=== PATIENT | female | born 1950 | race Caucasian/White ===

== ENCOUNTER 2016-09-23 16:38 | Observation (INO) | payer MEDICARE ==
[~2016-09-23] VITALS: Ht 162.6 cm; Wt 95.0 kg
[2016-09-23 16:46] VITALS: BP 124/58; PULSE 84; RESP 19; TEMP 98.3; O2SAT 97
[2016-09-23] MEDS ORDERED: SODIUM CHLOR 0.9% 1000 ML INJ 1,000 ML IV ONE (16:51)
[2016-09-23] MEDS ORDERED: CEFD300C PO (16:55)
[2016-09-23] MEDS ORDERED: PRED10 PO (16:55)
[2016-09-23] MEDS ORDERED: METF1000 PO (16:55)
[2016-09-23] MEDS ORDERED: METO25TA3 PO (16:58)
[2016-09-23] MEDS ORDERED: XARE20TA PO (16:58)
[2016-09-23] MEDS ORDERED: ATOR10TA15 PO (16:58)
[2016-09-23] MEDS ORDERED: ZOLO25TA PO (16:58)
[2016-09-23] MEDS ORDERED: SODIUM CHLORIDE 0.9% FLUSH 5 ML FLUSH IVF PRN (17:00)
--- NOTE | 2016-09-23 17:00 | PD ---
HPI Chief Complaint: Syncope/Near-Syncope Time Seen by Provider: 16:55 Travel History International Travel<30 days: No Contact w/Intl Traveler<30days: No Traveled to known affect area: No History of Present Illness HPI Patient is a 66-year-old female presenting to emergency department via EMS for evaluation of syncopal episodes. Patient states she has fainted twice over the last 2 days. She states that she hit her head both times. She complains of left hip pain, lower back pain, head pain. Patient reports being unable to tolerate food or fluids for the last week, she states she's been vomiting up nearly everything that she's eaten or had to drink. She denies any abdominal pain, she's had several bowel movements over the course of the last week. She further denies any fevers, chills, shortness of breath, chest pain, dizziness prior to the fall. She states that everything just went white and then she blacked out. Patient is here on vacation with a friend. PFSH Past Medical History Hx Anticoagulant Therapy: Yes (xarelto) Blood Disorders: Yes (history of DVT) Diabetes: Yes Respiratory: Yes ?: Not Family History Family History: Negative Social History Alcohol Use: No Tobacco Use: No Substance Use: No Allergies-Medications (Allergen,Severity, Reaction): Coded Allergies: No Known Allergies (Unverified , 09/23/16) Reported Meds & Prescriptions Reported Meds & Active Scripts Active Reported Atorvastatin (Atorvastatin Calcium) Unknown Strength Tab Unknown Dose PO HS Zoloft (Sertraline HCl) 25 Mg Tab 25 Mg PO DAILY Xarelto (Rivaroxaban) 20 Mg Tab 20 Mg PO DAILY Metoprolol Tartrate Unknown Strength Tab Unknown Dose PO BID Prednisone 10 Mg Tab 10 Mg PO DIRECTED Cefdinir 300 Mg Cap 300 Mg PO BID Metformin (Metformin HCl) 1,000 Mg Tab 1,000 Mg PO BIDPC With meals Review of Systems Except as stated in HPI: all other systems reviewed are Neg General / Constitutional: No: Fever, Chills Eyes: No: Blurred Vision HENT: Positive: Headaches, Neck Stiffness, Neck Pain Cardiovascular: No: Chest Pain or Discomfort Respiratory: No: Shortness of Breath Gastrointestinal: Positive: Nausea, Vomiting, No: Diarrhea, Abdominal Pain Musculoskeletal: Positive: Myalgias, Arthralgias, Pain Neurologic: Positive: Weakness, Dizziness, Syncope, Headache, No: Focal Abnormalities, Change in Mentation, Sensory Disturbance Physical Exam Narrative GENERAL: Overweight, well-developed, alert female. Tearful, in no acute distress. SKIN: Warm and dry. HEAD: Atraumatic. Normocephalic. EYES: Pupils equal and round. No scleral icterus. No injection or drainage. ENT: No nasal bleeding or discharge. Mucous membranes pink and moist. NECK: Trachea midline. No JVD. CARDIOVASCULAR: Regular rate and rhythm. No murmur appreciated. No peripheral edema, diminished pedal pulses. RESPIRATORY: No accessory muscle use. Clear to auscultation. Breath sounds equal bilaterally. GASTROINTESTINAL: Abdomen soft, non-tender, nondistended. Hepatic and splenic margins not palpable. MUSCULOSKELETAL: No obvious deformities. No clubbing. No cyanosis. No edema. Left leg is turned out, this is chronic. NEUROLOGICAL: Awake and alert. No obvious cranial nerve deficits. 4/5 muscle strength on the right, 5/5 in the left upper extremities. Normal speech. PSYCHIATRIC: Appropriate mood and affect; insight and judgment normal. Data Data Last Documented VS Vital Signs Date Time Temp Pulse Resp B/P Pulse Ox O2 Delivery O2 Flow Rate FiO2 09/23/16 18:40 96 Nasal Cannula 2 09/23/16 17:30 73 17 120/70 09/23/16 16:46 98.3 Orders Electrocardiogram (09/23/16 16:51) Complete Blood Count With Diff (09/23/16 16:51) Comprehensive Metabolic Panel (09/23/16 16:51) Magnesium (Mg) (09/23/16 16:51) Ckmb (Isoenzyme) Profile (09/23/16 16:51) Troponin I (09/23/16 16:51) Act Partial Throm Time (Ptt) (09/23/16 16:51) Prothrombin Time / Inr (Pt) (09/23/16 16:51) Urinalysis - C+S If Indicated (09/23/16 16:51) Ct Brain W/O Iv Contrast(Rout) (09/23/16 16:51) Ct Cerv Spine W/O Contrast (09/23/16 16:51) Blood Glucose (09/23/16 16:51) Ecg Monitoring (09/23/16 16:51) Iv Access Insert/Monitor (09/23/16 16:51) Oximetry (09/23/16 16:51) Oxygen Administration (09/23/16 16:51) Sodium Chloride 0.9% Flush (Ns Flush) (09/23/16 17:00) Sodium Chlor 0.9% 1000 Ml Inj (Ns 1000 M (09/23/16 16:51) Spine, Lumbar - Ltd (Ap & Lat) (09/23/16 ) Chest, Pa & Lat (09/23/16 ) Hip, Uni(Ap&Lat) W Ap Pelvis (09/23/16 ) Lactic Acid (09/23/16 16:51) Hydromorphone Pf Inj (Dilaudid Pf Inj) (09/23/16 18:15) Ondansetron Inj (Zofran Inj) (09/23/16 18:15) Potassium Chloride (Kcl) (09/23/16 18:30) Magnesium Oxide (Mag-Ox) (09/23/16 18:30) Magnesium Sulfate 1 Gm Premix (Magnesium (09/23/16 18:45) Ketorolac Inj (Toradol Inj) (09/23/16 19:00) Admit Order (Ed Use Only) (09/23/16 20:43) Labs Laboratory Tests Test 09/23/16 09/23/16 17:15 17:20 White Blood Count 13.0 TH/MM3 Red Blood Count 4.87 MIL/MM3 Hemoglobin 12.9 GM/DL Hematocrit 40.8 % Mean Corpuscular Volume 83.7 FL Mean Corpuscular Hemoglobin 26.5 PG Mean Corpuscular Hemoglobin 31.6 % Concent Red Cell Distribution Width 18.9 % Platelet Count 328 TH/MM3 Mean Platelet Volume 8.0 FL Neutrophils (%) (Auto) 75.5 % Lymphocytes (%) (Auto) 16.8 % Monocytes (%) (Auto) 6.7 % Eosinophils (%) (Auto) 0.9 % Basophils (%) (Auto) 0.1 % Neutrophils # (Auto) 9.8 TH/MM3 Lymphocytes # (Auto) 2.2 TH/MM3 Monocytes # (Auto) 0.9 TH/MM3 Eosinophils # (Auto) 0.1 TH/MM3 Basophils # (Auto) 0.0 TH/MM3 CBC Comment DIFF FINAL Differential Comment Prothrombin Time 11.8 SEC Prothromb Time International 1.1 RATIO Ratio Activated Partial 24.7 SEC Thromboplast Time Sodium Level 135 MEQ/L Potassium Level 3.3 MEQ/L Chloride Level 93 MEQ/L Carbon Dioxide Level 30.1 MEQ/L Anion Gap 12 MEQ/L Blood Urea Nitrogen 21 MG/DL Creatinine 0.94 MG/DL Estimat Glomerular Filtration 60 ML/MIN Rate Random Glucose 174 MG/DL Calcium Level 8.2 MG/DL Magnesium Level 0.9 MG/DL Total Bilirubin 0.7 MG/DL Aspartate Amino Transf 17 U/L (AST/SGOT) Alanine Aminotransferase 16 U/L (ALT/SGPT) Alkaline Phosphatase 69 U/L Total Creatine Kinase 79 U/L Troponin I LESS THAN 0.02 NG/ML Total Protein 6.4 GM/DL Albumin 3.1 GM/DL Lactic Acid Level 1.8 mmol/L [facility] Medical Decision Making Medical Screen Exam Complete: Yes Emergency Medical Condition: Yes Interpretation(s) Laboratory Tests Test 09/23/16 09/23/16 17:15 17:20 White Blood Count 13.0 TH/MM3 Red Blood Count 4.87 MIL/MM3 Hemoglobin 12.9 GM/DL Hematocrit 40.8 % Mean Corpuscular Volume 83.7 FL Mean Corpuscular Hemoglobin 26.5 PG Mean Corpuscular Hemoglobin 31.6 % Concent Red Cell Distribution Width 18.9 % Platelet Count 328 TH/MM3 Mean Platelet Volume 8.0 FL Neutrophils (%) (Auto) 75.5 % Lymphocytes (%) (Auto) 16.8 % Monocytes (%) (Auto) 6.7 % Eosinophils (%) (Auto) 0.9 % Basophils (%) (Auto) 0.1 % Neutrophils # (Auto) 9.8 TH/MM3 Lymphocytes # (Auto) 2.2 TH/MM3 Monocytes # (Auto) 0.9 TH/MM3 Eosinophils # (Auto) 0.1 TH/MM3 Basophils # (Auto) 0.0 TH/MM3 CBC Comment DIFF FINAL Differential Comment Prothrombin Time 11.8 SEC Prothromb Time International 1.1 RATIO Ratio Activated Partial 24.7 SEC Thromboplast Time Sodium Level 135 MEQ/L Potassium Level 3.3 MEQ/L Chloride Level 93 MEQ/L Carbon Dioxide Level 30.1 MEQ/L Anion Gap 12 MEQ/L Blood Urea Nitrogen 21 MG/DL Creatinine 0.94 MG/DL Estimat Glomerular Filtration 60 ML/MIN Rate Random Glucose 174 MG/DL Calcium Level 8.2 MG/DL Magnesium Level 0.9 MG/DL Total Bilirubin 0.7 MG/DL Aspartate Amino Transf 17 U/L (AST/SGOT) Alanine Aminotransferase 16 U/L (ALT/SGPT) Alkaline Phosphatase 69 U/L Total Creatine Kinase 79 U/L Troponin I LESS THAN 0.02 NG/ML Total Protein 6.4 GM/DL Albumin 3.1 GM/DL Lactic Acid Level 1.8 mmol/L Last Impressions Head CT 09/23/16 1651 Signed Impressions: Service Date/Time: Friday, September 23, 2016 17:56 - CONCLUSION: No acute intracranial abnormality. There is maxillary sinus disease. Maurisio Dozier MD Hip and Pelvis X-Ray 09/23/16 0000 Signed Impressions: Service Date/Time: Friday, September 23, 2016 18:14 - CONCLUSION: 1. No acute injury is seen. 2. Chronic calcification superior to the greater trochanter likely related to hypertrophic change. Maurisio Dozier MD Chest X-Ray 09/23/16 0000 Signed Impressions: Service Date/Time: Friday, September 23, 2016 18:24 - CONCLUSION: No acute disease. Maurisio Dozier MD Vital Signs Date Time Temp Pulse Resp B/P Pulse Ox O2 Delivery O2 Flow Rate FiO2 09/23/16 16:46 98.3 84 19 124/58 97 Differential Diagnosis Electrolyte abnormality versus cardiac arrhythmia versus CVA versus viral syndrome versus other Narrative Course Patient presented to the emergency department via EMS for evaluation of syncopal episodes over the last 2 days. Patient is complaining of hip, back, neck pain, head pain. She reports nausea and vomiting over the last week. Patient's vital signs are stable. Labs and imaging ordered and pending. CT of the brain shows no acute abnormality CT of the cervical spine shows no acute abnormality CBC with mildly elevated white count Chemistry with potassium 3.3 and magnesium of 0.9, these were replaced orally and intravenously Coags are unremarkable Patient's vital signs remained stable EKG shows sinus rhythm Chest x-ray shows no acute disease X-ray of the hip is negative for acute injury X-ray of the lumbar spine shows grade 1-2 anterior spondylolisthesis of L5-S1, prominent disc space narrowing at this level is also prominent disc space narrowing and chronic endplate changes at T12 to L1 level. No acute fracture is again applied. Due to patient's repeated syncopal episodes she will be admitted under observation. Discussed patient's presentation and labs and imaging results with Dr. Gonzáles who accepted admission. Diagnosis Primary Impression: Syncope and collapse Additional Impressions: Hypokalemia Hypomagnesemia Nausea & vomiting Qualified Code: R11.2 - Nausea and vomiting, intractability of vomiting not specified, unspecified vomiting type Admitting Information Admitting Physician Requests: Observation Condition: Stable Rosana Cote Sep 23, 2016 17:00
[2016-09-23 17:02] VITALS: O2SAT 95
[2016-09-23 17:30] VITALS: BP 120/70; PULSE 73; RESP 17; O2SAT 97
[2016-09-23 18:00] LABS: APTT (PATIENT) 24.7 SEC (24.3-30.1); INTERNATIONAL NORMALIZED RATIO 1.1 RATIO; PROTHROMBIN TIME - PATIENT 11.8 SEC (9.8-11.6)
[2016-09-23 18:03] LABS: AUTOMATED NEUTROPHIL # 9.8 TH/MM3 (1.8-7.7); BASOPHIL % 0.1 % (0.0-2.0); EOSINOPHIL # 0.1 TH/MM3 (0-0.4); EOSINOPHIL % 0.9 % (0.0-4.0); HEMATOCRIT 40.8 % (35.0-46.0); HEMO FLAGS DIFF FINAL; LYMPH % 16.8 % (9.0-44.0); LYMPHOCYTE # 2.2 TH/MM3 (1.0-4.8); MEAN CELL VOLUME 83.7 FL (80.0-100.0); MEAN CORPUSCULAR HEMOGLOBIN 26.5 PG (27.0-34.0); MEAN CORPUSCULAR HGB CONC 31.6 % (32.0-36.0); MONO % 6.7 % (0.0-8.0); NEUT % 75.5 % (16.0-70.0); PLATELET COUNT 328 TH/MM3 (150-450); RED BLOOD COUNT 4.87 MIL/MM3 (4.00-5.30); RED CELL DISTRIBUTION WIDTH 18.9 % (11.6-17.2)
[2016-09-23] MEDS ORDERED: ONDANSETRON HCL 4 MG/2 ML VIAL IV PUSH ONE (18:15)
[2016-09-23] MEDS ORDERED: HYDROmorphone HCL PF 1 MG/ML VIAL IV PUSH ONE (18:15)
--- NOTE | 2016-09-23 18:16 | RADRPT ---
EXAM DATE/TIME: 09/23/2016 17:56 [facility] COMPARISON: No previous studies available for comparison. INDICATIONS : Syncope with head injury. RADIATION DOSE: 36.16 CTDIvol (mGy) MEDICAL HISTORY : Deep venous thrombosis. Hypercholesterolemia. Arthritis. SURGICAL HISTORY : None. ENCOUNTER: Initial ACUITY: 1 day PAIN SCALE: 4/10 LOCATION: cranial TECHNIQUE: Multiple contiguous axial images were obtained of the head. Using automated exposure control and adj ustment of the mA and/or kV according to patient size, radiation dose was kept as low as reasonably a chievable to obtain optimal diagnostic quality images. FINDINGS: CEREBRUM: The ventricles are normal for age. No evidence of midline shift, mass lesion, hemorrhage or acute in farction. No extra-axial fluid collections are seen. POSTERIOR FOSSA: The cerebellum and brainstem are intact. The 4th ventricle is midline. The cerebellopontine angle i s unremarkable. EXTRACRANIAL: The visualized portion of the orbits is intact. There is bilateral maxillary sinus disease. SKULL: The calvaria is intact. No evidence of skull fracture. CONCLUSION: No acute intracranial abnormality. There is maxillary sinus disease. Maurisio Dozier MD on September 23, 2016 at 18:13 Board Certified Radiologist. This report was verified electronically.
[2016-09-23 18:20] LABS: ANION GAP 12 MEQ/L (5-15); AST (GOT) 17 U/L (15-37); BICARBONATE 30.1 MEQ/L (21.0-32.0); BLOOD UREA NITROGEN 21 MG/DL (7-18); CHLORIDE 93 MEQ/L (98-107); GLOMERULAR FILTRATION RATE 60 ML/MIN (>89); MAGNESIUM 0.9 MG/DL (1.5-2.5); POTASSIUM 3.3 MEQ/L (3.5-5.1); SODIUM (NA) 135 MEQ/L (136-145)
[2016-09-23 18:25] LABS: ALKALINE PHOSPHATASE 69 U/L (45-117); ALT (GPT) 16 U/L (10-53); TOTAL BILIRUBIN ADULT 0.7 MG/DL (0.2-1.0)
[2016-09-23 18:27] LABS: CREATINE KINASE 79 U/L (26-192)
[2016-09-23] MEDS ORDERED: POTASSIUM CHLORIDE 20 MEQ CONTROLLED RELEASE TAB PO ONE (18:30)
[2016-09-23] MEDS ORDERED: MAGNESIUM OXIDE 400 MG TAB PO ONE (18:30)
--- NOTE | 2016-09-23 18:32 | RADRPT ---
EXAM DATE/TIME: 09/23/2016 17:56 [facility] COMPARISON: No previous studies available for comparison. INDICATIONS : Syncope with head trauma. RADIATION DOSE: 21.39 CTDIvol (mGy) MEDICAL HISTORY : Arthritis. Deep venous thrombosis. Hypercholesterolemia. SURGICAL HISTORY : None. ENCOUNTER: Initial ACUITY: 1 day PAIN SCALE: 7/10 LOCATION: Neck TECHNIQUE: Volumetric scanning of the cervical spine was performed. Multiplanar reconstructions i n the sagittal, coronal and oblique axial planes were performed. Using automated exposure control a nd adjustment of the mA and/or kV according to patient size, radiation dose was kept as low as reason ably achievable to obtain optimal diagnostic quality images. FINDINGS: The craniovertebral junction is intact. There is a defect identified at the posterior arch of C1. This is well corticated and is chronic. This is a normal variant. The dens is intact. T he C1-C2 articulation is intact. The cervical vertebral bodies are normal in height. There is some mi nimal anterior subluxation of C7 on T1 in the order of 2 to 3 mm. C2-C3: There is posterior osteophytic ridging causing a mild impression on the anterior aspect of th e thecal sac. The neural foramina are normal. There is bilateral facet hypertrophy being worse on th e left. C3-C4: The posterior disc margin is grossly intact. No spinal stenosis is seen. There is mild face t hypertrophy. C4-C5: There is a mild central disc protrusion. This causes at least a mild impression on the anter ior aspect of the thecal sac. The neural foramina are normal. C5-C6: Disc space is narrowed. There is mild diffuse disc bulge and osteophytic ridging causing a mi ld to moderate impression on the anterior aspect of the thecal sac. There is uncovertebral hypertrop hy. The neural foramina are grossly normal. There is mild facet hypertrophy. C6-C7: Disc demonstrates significant loss of height. There is prominent sclerosis seen at the inferi or C6 and superior C7 regions. There is posterior osteophytic ridging. There does appear to be a foc al central to left paracentral disc protrusion causing a mild impression on the anterior aspect of th e thecal sac. There is uncovertebral hypertrophy. There is mild narrowing of the left neural forami na. The right neural foramina appears grossly intact. C7-T1: Again noted is the anterior subluxation of C7 on T1. Significant narrowing of the thecal sac is not seen. There is moderate facet hypertrophy. The neural foramina are normal. CONCLUSION: 1. Degenerative chronic bony change as described above. 2. Mild central disc protrusion at the C4-C5 level and at the central to left side at the C6-C7 level . 3. Disc space narrowing and bulging and osteophyte formation at the C5-C6 and C6-C7 levels. 4. 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 Maurisio Dozier MD on September 23, 2016 at 18:14 Board Certified Radiologist. This report was verified electronically.
[2016-09-23] MEDS ORDERED: MAGNESIUM SULFATE 1 GM PREMIX 100 ML IV ONE (18:45)
--- NOTE | 2016-09-23 18:57 | RADRPT ---
EXAM DATE/TIME: 09/23/2016 18:14 [facility] COMPARISON: No previous studies available for comparison. INDICATIONS : Left hip pain after passing out and falling. MEDICAL HISTORY : None. SURGICAL HISTORY : None. ENCOUNTER: Initial ACUITY: 1 day PAIN SCORE: 10/10 LOCATION: Left hip. FINDINGS: Examination of the left hip was performed with AP Pelvis. The primary and secondary trabecular patte rn of the femoral neck is intact. The hip joint is of normal width without significant sclerosis or bony hypertrophy. The acetabulum is grossly intact. There is some calcification seen superior to the greater trochanter. CONCLUSION: 1. No acute injury is seen. 2. Chronic calcification superior to the greater trochanter likely related to hypertrophic change. Maurisio Dozier MD on September 23, 2016 at 18:52 Board Certified Radiologist. This report was verified electronically.
[2016-09-23] MEDS ORDERED: KETOROLAC TROMETHAMINE 30 MG/ML (IVP) VIAL IV PUSH ONE (19:00)
--- NOTE | 2016-09-23 19:02 | RADRPT ---
EXAM DATE/TIME: 09/23/2016 18:24 [facility] COMPARISON: No previous studies available for comparison. INDICATIONS : Syncope. MEDICAL HISTORY : None. SURGICAL HISTORY : gastric bypass surgery, cholecystectomy. ENCOUNTER: Initial ACUITY: 1 day PAIN SCORE: 10/10 LOCATION: Bilateral chest FINDINGS: PA and lateral views of the chest demonstrate the lungs to be symmetrically aerated without evidence of mass, infiltrate or effusion. The cardiomediastinal contours are unremarkable. Osseous structure s are intact. There appears to be a lap band in place. CONCLUSION: No acute disease. Maurisio Dozier MD on September 23, 2016 at 19:01 Board Certified Radiologist. This report was verified electronically.
--- NOTE | 2016-09-23 19:03 | RADRPT ---
EXAM DATE/TIME: 09/23/2016 18:17 [facility] COMPARISON: No previous studies available for comparison. INDICATIONS : Lower back pain after passing out and falling. MEDICAL HISTORY : None. SURGICAL HISTORY : None. ENCOUNTER: Initial ACUITY: 1 day PAIN SCORE: 10/10 LOCATION: Bilateral lower back. FINDINGS: There are five non rib-bearing lumbar elements. There does appear to be some silvano mentary lumbarization of S1 with a rudimentary disc at the S1-S2 level. There is Grade I to II anter ior spondylolisthesis of L5 on S1. There appear to be pars defects present. The lumbar vertebral sharon dies are otherwise normally aligned. There is prominent disc space narrowing and endplate sclerosis and osteophyte formation at the T12-L1 level. There is disc space narrowing at the L5-S1 level. The remanning disc spaces are grossly intact. There is a lap band in place. Vascular calcifications are seen. The sacroiliac joints are intact. CONCLUSION: 1. Grade I to II anterior spondylolisthesis of L5 on S1. 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 There is very prominent disc space narrowing at this level. 2. Prominent disc space narrowing and chronic endplate changes at the T12-L1 level. Maurisio Dozier MD on September 23, 2016 at 18:56 Board Certified Radiologist. This report was verified electronically.
--- NOTE | 2016-09-23 19:12 | PD ---
Physical Exam Date Seen by Provider: Sep 23, 2016 Time Seen by Provider: 18:00 Narrative I, Dr. Lott, have reviewed the advance practice practitioner's documentation and am in agreement, met with the patient face to face, made the diagnosis, and the medical decision making was done by me. *My assessment and Findings: Patient seen and evaluated with nurse practitioner Rosana, please see practitioner note for further details. Patient is here because she has been feeling poorly in the past few days, nausea, vomiting, having 2 syncopal episodes. Patient is awake, alert, oriented 3. Moving all 4 extremities. Cardiac exam is unremarkable. Pulmonary exam is unremarkable. Abdomen is soft and nontender, benign. EKG shows sinus rhythm at a rate of 86 bpm with no signs of acute ST-T changes. Laboratory Tests Test 09/23/16 17:15 White Blood Count 13.0 TH/MM3 (4.0-11.0) Mean Corpuscular Hemoglobin 26.5 PG (27.0-34.0) Mean Corpuscular Hemoglobin 31.6 % Concent (32.0-36.0) Red Cell Distribution Width 18.9 % (11.6-17.2) Neutrophils (%) (Auto) 75.5 % (16.0-70.0) Neutrophils # (Auto) 9.8 TH/MM3 (1.8-7.7) Prothrombin Time 11.8 SEC (9.8-11.6) Sodium Level 135 MEQ/L (136-145) Potassium Level 3.3 MEQ/L (3.5-5.1) Chloride Level 93 MEQ/L (98-107) Blood Urea Nitrogen 21 MG/DL (7-18) Estimat Glomerular Filtration 60 ML/MIN (>89) Rate Random Glucose 174 MG/DL (74-106) Calcium Level 8.2 MG/DL (8.5-10.1) Magnesium Level 0.9 MG/DL (1.5-2.5) Troponin I LESS THAN 0.02 NG/ML (0.02-0.05) Albumin 3.1 GM/DL (3.4-5.0) Last [address] 09/23/16 1651 Signed Impressions: Service Date/Time: Friday, September 23, 2016 17:56 - CONCLUSION: No acute intracranial abnormality. There is maxillary sinus disease. Maurisio Dozier MD Hip and Pelvis X-Ray 09/23/16 0000 Signed Impressions: Service Date/Time: Friday, September 23, 2016 18:14 - CONCLUSION: 1. No acute injury is seen. 2. Chronic calcification superior to the greater trochanter likely related to hypertrophic change. Maurisio Dozier MD CAT scan did not show any signs of acute intracranial processes. X-rays did not show significant injuries. Lab work and EKG did not show significant dysrhythmia or metabolic issues. Patient was given IV fluids and symptomatic relief or pain and nausea. At this point, my plan would be to admit the patient for further evaluation of syncope. Data Data Last Documented VS Vital Signs Date Time Temp Pulse Resp B/P Pulse Ox O2 Delivery O2 Flow Rate FiO2 09/23/16 18:40 96 Nasal Cannula 2 09/23/16 17:30 73 17 120/70 09/23/16 16:46 98.3 Orders Electrocardiogram (09/23/16 16:51) Complete Blood Count With Diff (09/23/16 16:51) Comprehensive Metabolic Panel (09/23/16 16:51) Magnesium (Mg) (09/23/16 16:51) Ckmb (Isoenzyme) Profile (09/23/16 16:51) Troponin I (09/23/16 16:51) Act Partial Throm Time (Ptt) (09/23/16 16:51) Prothrombin Time / Inr (Pt) (09/23/16 16:51) Urinalysis - C+S If Indicated (09/23/16 16:51) Ct Brain W/O Iv Contrast(Rout) (09/23/16 16:51) Ct Cerv Spine W/O Contrast (09/23/16 16:51) Blood Glucose (09/23/16 16:51) Ecg Monitoring (09/23/16 16:51) Iv Access Insert/Monitor (09/23/16 16:51) Oximetry (09/23/16 16:51) Oxygen Administration (09/23/16 16:51) Sodium Chloride 0.9% Flush (Ns Flush) (09/23/16 17:00) Sodium Chlor 0.9% 1000 Ml Inj (Ns 1000 M (09/23/16 16:51) Spine, Lumbar - Ltd (Ap & Lat) (09/23/16 ) Chest, Pa & Lat (09/23/16 ) Hip, Uni(Ap&Lat) W Ap Pelvis (09/23/16 ) Lactic Acid (09/23/16 16:51) Hydromorphone Pf Inj (Dilaudid Pf Inj) (09/23/16 18:15) Ondansetron Inj (Zofran Inj) (09/23/16 18:15) Potassium Chloride (Kcl) (09/23/16 18:30) Magnesium Oxide (Mag-Ox) (09/23/16 18:30) Magnesium Sulfate 1 Gm Premix (Magnesium (09/23/16 18:45) Ketorolac Inj (Toradol Inj) (09/23/16 19:00) Labs Laboratory Tests Test 09/23/16 09/23/16 17:15 17:20 White Blood Count 13.0 TH/MM3 Red Blood Count 4.87 MIL/MM3 Hemoglobin 12.9 GM/DL Hematocrit 40.8 % Mean Corpuscular Volume 83.7 FL Mean Corpuscular Hemoglobin 26.5 PG Mean Corpuscular Hemoglobin 31.6 % Concent Red Cell Distribution Width 18.9 % Platelet Count 328 TH/MM3 Mean Platelet Volume 8.0 FL Neutrophils (%) (Auto) 75.5 % Lymphocytes (%) (Auto) 16.8 % Monocytes (%) (Auto) 6.7 % Eosinophils (%) (Auto) 0.9 % Basophils (%) (Auto) 0.1 % Neutrophils # (Auto) 9.8 TH/MM3 Lymphocytes # (Auto) 2.2 TH/MM3 Monocytes # (Auto) 0.9 TH/MM3 Eosinophils # (Auto) 0.1 TH/MM3 Basophils # (Auto) 0.0 TH/MM3 CBC Comment DIFF FINAL Differential Comment Prothrombin Time 11.8 SEC Prothromb Time International 1.1 RATIO Ratio Activated Partial 24.7 SEC Thromboplast Time Sodium Level 135 MEQ/L Potassium Level 3.3 MEQ/L Chloride Level 93 MEQ/L Carbon Dioxide Level 30.1 MEQ/L Anion Gap 12 MEQ/L Blood Urea Nitrogen 21 MG/DL Creatinine 0.94 MG/DL Estimat Glomerular Filtration 60 ML/MIN Rate Random Glucose 174 MG/DL Calcium Level 8.2 MG/DL Magnesium Level 0.9 MG/DL Total Bilirubin 0.7 MG/DL Aspartate Amino Transf 17 U/L (AST/SGOT) Alanine Aminotransferase 16 U/L (ALT/SGPT) Alkaline Phosphatase 69 U/L Total Creatine Kinase 79 U/L Troponin I LESS THAN 0.02 NG/ML Total Protein 6.4 GM/DL Albumin 3.1 GM/DL Lactic Acid Level 1.8 mmol/L [facility] Medical Record Reviewed: Yes Supervised Visit with BERE: Yes Diagnosis Primary Impression: SYNCOPE AND COLLAPSE Admitting Information Admitting Physician Requests: Admit Simon Lott MD Sep 23, 2016 19:12
[2016-09-23 20:58] LABS: BLOOD, URINE NEG (NEG); COMMENT (UR) CULT NOT INDICATED; CULTURE IF INDICATED CULT NOT INDICATED; GLUCOSE,URINE NEG (NEG); HYALINE CAST, URINE 1 /lpf (RARE); KETONE, URINE NEG (NEG); NITRITE,URINE NEG (NEG); PH, URINE 6.5 (5.0-8.5); URINE COLOR YELLOW (YELLW/STRAW)
[2016-09-23] MEDS ORDERED: SODIUM CHLORIDE 0.9% FLUSH 5 ML FLUSH FLUSH PRN (21:15)
[2016-09-23] MEDS ORDERED: ACETAMINOPHEN/HYDROcodone 325 MG/5 MG TAB PO PRN (21:15)
[2016-09-23] MEDS ORDERED: BISACODYL 10 MG SUPP PR PRN (21:15)
[2016-09-23] MEDS ORDERED: ACETAMINOPHEN 325 MG TAB PO PRN (21:15)
[2016-09-23] MEDS ORDERED: DEXTROSE 50% IN WATER 50 ML VIAL(D50) IV PUSH PRN (21:15)
[2016-09-23] MEDS ORDERED: GLUCAGON 1 MG/ML VIAL OTHER PRN ×2 (21:15)
--- NOTE | 2016-09-23 21:17 | HHI.HP ---
[facility] Service [facility] Primary Care Physician Non-Staff Admission Diagnosis SYNCOPE Diagnoses: (1) Syncope Diagnosis: Principal (2) Dehydration Diagnosis: Principal (3) Hypokalemia Diagnosis: Principal (4) Hypomagnesemia Diagnosis: Principal (5) DM (diabetes mellitus) Diagnosis: Principal Travel History International Travel<30 Days: No Contact w/Intl Traveler <30 Da: No Traveled to Known Affected Are: No History of Present Illness This is a 66-year-old female with a PMH of HTN, DVT on Xarelto, DM and Hyperlipidemia who was brought to the ER by EMS after syncopal episode. Per pt this is second syncopal episode since yesterday. Denies lightheadedness or dizziness prior to syncope. + head trauma. No convulsions witnessed. Pt does relay recent nausea, vomiting and decreased PO intake for 3-4 days. Denies fever, chills, SOB or chest pain. On arrival, BP 120/58, HR 84, O2 sat 97% RA, Afebrile. K+ 3.3, BUN 21, GFR 60, Mg 0.9, Lactic Acid 1.8. Trop negative. S/ p K+ and Mg replacement in ER. INR 1.1. UA negative. CT Head with no acute findings. CT C-spine with mild central disc protrusion C4-C5, disc space narrowing and bulging at C5-C6 and C6-C7 and degenerative chronic bony changes. Hip/Pelvis X-ray with no acute injury. CXR with no acute findings. Review of Systems Except as stated in HPI: all other systems reviewed are Neg ROS: 14 point review of systems otherwise negative. Past Family Social History Past Medical History PMH: HTN, DVT on Xarelto, DM and Hyperlipidemia Past Surgical History PAST SURGICAL HISTORY: Cholecystectomy Allergies: Coded Allergies: No Known Allergies (Unverified , 09/23/16) Family History PAST FAMILY HISTORY: Reviewed, positive for DM. Social History PAST SOCIAL HISTORY: Negative for alcohol, tobacco or drugs. Physical Exam Vital Signs Vital Signs Date Time Temp Pulse Resp B/P Pulse Ox O2 Delivery O2 Flow Rate FiO2 09/23/16 18:40 96 Nasal Cannula 2 2/15/17 17:30 73 17 120/70 97 Nasal Cannula 2 09/23/16 17:03 95 Room Air 09/23/16 17:02 95 Room Air 09/23/16 16:46 98.3 84 19 124/58 97 Physical Exam PE: GENERAL: Middle-aged female in no acute distress. HEENT: PERRLA, EOMI. No scleral icterus or conjunctival pallor. No lid lag or facial droop. CARDIOVASCULAR: Regular rate and rhythm. No obvious murmurs to auscultation. No chest tenderness to palpation. RESPIRATORY: No obvious rhonchi or wheezing. Clear to auscultation. Breath sounds equal bilaterally. GASTROINTESTINAL: Abdomen soft, non-tender, nondistended. BS normal. MUSCULOSKELETAL: Extremities without clubbing, cyanosis, or edema. Pulses intact NEUROLOGICAL: Awake, alert and oriented x4. No focal neurologic deficits. Moving both upper and lower extremities spontaneously. Laboratory Laboratory Tests Test 09/23/16 09/23/16 09/23/16 17:15 17:20 20:30 White Blood Count 13.0 Red Blood Count 4.87 Hemoglobin 12.9 Hematocrit 40.8 Mean Corpuscular Volume 83.7 Mean Corpuscular Hemoglobin 26.5 Mean Corpuscular Hemoglobin 31.6 Concent Red Cell Distribution Width 18.9 Platelet Count 328 Mean Platelet Volume 8.0 Neutrophils (%) (Auto) 75.5 Lymphocytes (%) (Auto) 16.8 Monocytes (%) (Auto) 6.7 Eosinophils (%) (Auto) 0.9 Basophils (%) (Auto) 0.1 Neutrophils # (Auto) 9.8 Lymphocytes # (Auto) 2.2 Monocytes # (Auto) 0.9 Eosinophils # (Auto) 0.1 Basophils # (Auto) 0.0 CBC Comment DIFF FINAL Differential Comment Prothrombin Time 11.8 Prothromb Time International 1.1 Ratio Activated Partial 24.7 Thromboplast Time Sodium Level 135 Potassium Level 3.3 Chloride Level 93 Carbon Dioxide Level 30.1 Anion Gap 12 Blood Urea Nitrogen 21 Creatinine 0.94 Estimat Glomerular Filtration 60 Rate Random Glucose 174 Calcium Level 8.2 Magnesium Level 0.9 Total Bilirubin 0.7 Aspartate Amino Transf 17 (AST/SGOT) Alanine Aminotransferase 16 (ALT/SGPT) Alkaline Phosphatase 69 Total Creatine Kinase 79 Troponin I LESS THAN 0.02 Total Protein 6.4 Albumin 3.1 Lactic Acid Level 1.8 Urine Color YELLOW Urine Turbidity CLEAR Urine pH 6.5 Urine Specific [place] 1.012 Urine Protein NEG Urine Glucose (UA) NEG Urine Ketones NEG Urine Occult Blood NEG Urine Nitrite NEG Urine Bilirubin NEG Urine Urobilinogen LESS THAN 2.0 Urine Leukocyte Esterase NEG Urine WBC 1 Urine Hyaline Casts 1 Microscopic Urinalysis Comment CULT NOT INDICATED Result Diagram: 09/23/16171409/23/161714 Assessment and Plan Problem List: (1) Syncope ICD Code: R55 Status: Acute (2) Dehydration ICD Code: E86.0 Status: Acute (3) Hypokalemia ICD Code: E87.6 Status: Acute (4) Hypomagnesemia ICD Code: E83.42 Status: Acute (5) DM (diabetes mellitus) ICD Code: E11.9 Status: Acute Assessment and Plan A/P: 1. Syncope: s/p syncopal episode today and yesterday, +head trauma, no convulsions witnessed, denies prodromal symptoms. CT Head/CT C-Spine w/ no acute findings, images reviewed by me. Hip/Pelvis X-ray negative for fracture, CXR w/ no acute findings, images reviewed. Admit for Observation, IVF for hydration, telemetry, check Echo, check serial trop to eval for underlying ischemia. 2. Dehydration: reports nausea/vomiting and decreased PO intake, IVF for hydration. GFR 60, BUN 21, no previous labs for comparison. U/a negative. 3. Hypokalemia: S/p K+ replacement in ER, will recheck in am and replace as needed. 4. Hypomagnesemia: Mg 0.9, s/p replacement in ER. Recheck Mg in am, replace as needed. 5. DM: Sliding scale w/ Accu-Cheks, hold Metformin secondary to decreased PO intake. 6. DVT Prophylaxis: SCD/teds. 7. Social work for DC planning as needed. 8. Case discussed at length with ER physician. Amanda Gonzáles MD Sep 23, 2016 21:17
[2016-09-23] MEDS: SODIUM CHLOR 0.9% 1000 ML INJ 1,000 ML IV SCH (23:00)
[2016-09-23] MEDS: ACETAMINOPHEN/HYDROcodone 325 MG/10 MG TAB PO PRN (23:03)
[2016-09-23] MEDS: ONDANSETRON HCL 4 MG/2 ML VIAL IVP PRN (23:03)
[2016-09-23 23:08] VITALS: BP 110/59; PULSE 73; RESP 17; O2SAT 96
[2016-09-24 03:00] VITALS: BP 115/63; PULSE 70; RESP 17; O2SAT 98
[2016-09-24] MEDS: ACETAMINOPHEN/HYDROcodone 325 MG/10 MG TAB PO PRN ×5 (03:27→22:22)
[2016-09-24 04:07] LABS: AUTOMATED NEUTROPHIL # 6.1 TH/MM3 (1.8-7.7); BASOPHIL % 0.3 % (0.0-2.0); EOSINOPHIL # 0.2 TH/MM3 (0-0.4); LYMPH % 21.1 % (9.0-44.0); LYMPHOCYTE # 1.9 TH/MM3 (1.0-4.8); MEAN CELL VOLUME 83.5 FL (80.0-100.0); MEAN CORPUSCULAR HEMOGLOBIN 26.8 PG (27.0-34.0); MEAN CORPUSCULAR HGB CONC 32.1 % (32.0-36.0); MONO % 8.2 % (0.0-8.0); NEUT % 68.4 % (16.0-70.0); PLATELET COUNT 281 TH/MM3 (150-450); RED BLOOD COUNT 4.55 MIL/MM3 (4.00-5.30); RED CELL DISTRIBUTION WIDTH 18.7 % (11.6-17.2); WHITE BLOOD COUNT 8.9 TH/MM3 (4.0-11.0)
[2016-09-24 04:17] LABS: HEMO FLAGS AUTO DIFF
[2016-09-24 04:32] LABS: ANION GAP 5 MEQ/L (5-15); AST (GOT) 46 U/L (15-37); BICARBONATE 30.5 MEQ/L (21.0-32.0); BLOOD UREA NITROGEN 18 MG/DL (7-18); CHLORIDE 101 MEQ/L (98-107); GLOMERULAR FILTRATION RATE 87 ML/MIN (>89); MAGNESIUM 1.6 MG/DL (1.5-2.5); POTASSIUM 5.3 MEQ/L (3.5-5.1); SODIUM (NA) 136 MEQ/L (136-145)
[2016-09-24 04:33] LABS: ALKALINE PHOSPHATASE 55 U/L (45-117); ALT (GPT) 19 U/L (10-53); TOTAL BILIRUBIN ADULT 0.6 MG/DL (0.2-1.0)
[2016-09-24] MEDS: INSULIN ASPART SUPPLEMENTAL SCALE SQ SCH ×4 (07:00→20:59)
[2016-09-24 07:14] VITALS: BP 134/63; PULSE 73; RESP 12; TEMP 97.9; O2SAT 88
[2016-09-24 07:20] VITALS: BP_SYST 131; BP_SYST 134; BP_SYST 137; BP_DIAS 60; BP_DIAS 61; BP_DIAS 63; RESP 13; RESP 16
[2016-09-24] MEDS: SODIUM CHLOR 0.9% 1000 ML INJ 1,000 ML IV SCH (07:30)
[2016-09-24] MEDS: SODIUM CHLORIDE 0.9% FLUSH 5 ML FLUSH FLUSH SCH ×2 (07:30→20:58)
[2016-09-24 07:44] LABS: OVALOCYTES 1+ (NORMAL); PLATELET ESTIMATE SMEAR NORMAL (NORMAL); PLATELET MORPHOLOGY NORMAL (NORMAL); SCAN/DIFF AUTO DIFF CONFIRMED
[2016-09-24] MEDS: ONDANSETRON HCL 4 MG/2 ML VIAL IVP PRN ×3 (08:08→22:22)
--- NOTE | 2016-09-24 08:47 | EKG ---
Date Performed: 09/23/2016 Time Performed: 17:02:27 PTAGE: 66 years EKG: Sinus rhythm BORDERLINE LEFT AXIS DEVIATION BORDERLINE ECG NO PREVIOUS TRACING DOCTOR: Edgar Coelho Interpretating Date/Time 09/24/2016 08:42:36
[2016-09-24] MEDS: RIVAROXABAN 20 MG TAB PO SCH (09:29)
[2016-09-24] MEDS: SERTRALINE HCL 50 MG TAB PO SCH (09:29)
[2016-09-24 11:39] VITALS: BP 147/86; PULSE 101; RESP 19; TEMP 97.4; O2SAT 93
[2016-09-24] MEDS: MAGNESIUM SULFATE 1 GM PREMIX 100 ML IV SCH ×2 (12:07→14:14)
--- NOTE | 2016-09-24 12:38 | HHI.PR ---
Subjective Remarks Follow-up for syncope. The patient states she had 2 recent hospitalizations in the [place]. The first hospitalization was for a kidney infection 2 weeks ago. She states she had to return to the hospital because she was fluid overloaded after her first hospitalization. She had been on Lasix for 1 week, just finished taking it. She states her oral intake has been down for the past week or so. She's had one syncopal episode over each the past 2 days. She states the episode happened yesterday after she got up and walked across the room. She states she felt lightheaded prior to passing out. She did not have any chest pain. She hasn't tried ambulating yet here, normally uses a cane. She feels well at this time, and is hoping to go home later today. Objective Vitals Vital Signs Date Time Temp Pulse Resp B/P Pulse Ox O2 Delivery O2 Flow Rate FiO2 09/24/16 11:39 97.4 101 19 147/86 93 Room Air 09/24/16 09:30 14 09/24/16 07:20 72 13 134/63 74 13 131/61 80 16 137/60 09/24/16 07:14 97.9 73 12 134/63 88 Room Air 09/24/16 03:00 70 17 115/63 98 Nasal Cannula 2 09/23/16 23:08 73 17 110/59 96 Nasal Cannula 2 09/23/16 18:40 96 Nasal Cannula 2 09/23/16 17:30 73 17 120/70 97 Nasal Cannula 2 09/23/16 17:03 95 Room Air 09/23/16 17:02 95 Room Air 09/23/16 16:46 98.3 84 19 124/58 97 Result Diagram: 09/24/16 0334 09/24/16 1150 Imaging Last Impressions Head CT 09/23/161650 Signed Impressions: Service Date/Time: Friday, September 23, 2016 17:56 - CONCLUSION: No acute intracranial abnormality. There is maxillary sinus disease. Maurisio Dozier MD Cervical Spine CT 09/23/161650 Signed Impressions: Service Date/Time: Friday, September 23, 2016 17:56 - CONCLUSION: 1. Degenerative chronic bony change as described above. 2. Mild central disc protrusion at the C4-C5 level and at the central to left side at the C6-C7 level. 3. Disc space narrowing and bulging and osteophyte formation at the C5-C6 and C6-C7 levels. 4. 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 Maurisio Dozier MD Lumbar Spine X-Ray 09/23/16 0000 Signed Impressions: Service Date/Time: Friday, September 23, 2016 18:17 - CONCLUSION: 1. Grade I to II anterior spondylolisthesis of L5 on S1. 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 There is very prominent disc space narrowing at this level. 2. Prominent disc space narrowing and chronic endplate changes at the T12-L1 level. Maurisio Dozier MD Hip and Pelvis X-Ray 09/23/16 0000 Signed Impressions: Service Date/Time: Friday, September 23, 2016 18:14 - CONCLUSION: 1. No acute injury is seen. 2. Chronic calcification superior to the greater trochanter likely related to hypertrophic change. Maurisio Dozier MD Chest X-Ray 09/23/16 0000 Signed Impressions: Service Date/Time: Friday, September 23, 2016 18:24 - CONCLUSION: No acute disease. Maurisio Dozier MD Objective Remarks GENERAL: Well-developed well-nourished. In no acute distress. SKIN: Warm and dry. No lesions noted. HEENT: Normocephalic. Pupils equal and round. Mucous membranes pink and moist. No carotid bruits auscultated. CARDIOVASCULAR: Regular rate and rhythm. No murmur appreciated. RESPIRATORY: No accessory muscle use. Clear to auscultation. Breath sounds equal bilaterally. GASTROINTESTINAL: Abdomen soft, non-tender, nondistended. Bowel sounds x4. MUSCULOSKELETAL: No obvious deformities. No clubbing or cyanosis. No edema. NEUROLOGICAL: Awake and alert. No focal neurological deficits. Moves upper and lower extremities spontaneously. Normal speech. PSYCHIATRIC: Appropriate mood and affect; insight and judgment normal. A/P Problem List: (1) Syncope ICD Code: R55 Status: Acute (2) Dehydration ICD Code: E86.0 Status: Acute (3) Hypokalemia ICD Code: E87.6 Status: Acute (4) Hypomagnesemia ICD Code: E83.42 Status: Acute (5) DM (diabetes mellitus) ICD Code: E11.9 Status: Acute Assessment and Plan 66-year-old female with a PMH of HTN, DVT on Xarelto, DM and Hyperlipidemia who was brought to the ER by EMS after syncopal episode Syncope: s/p syncopal episodes prior to admission. +head trauma, no convulsions witnessed, denies prodromal symptoms. Suspect secondary to dehydration from decrease oral intake and recent Lasix use as well as electrolyte abnormalities as below. CT Head/CT C-Spine w/ no acute findings. Hip/Pelvis X-ray negative for fracture, CXR w/ no acute findings. Serial troponins within normal limits. S/P IVF for hydration. Replenish electrolytes. Check carotid ultrasound, no significant stenosis. Monitor on telemetry. Check Echo. PT eval. Hypokalemia: From Lasix use. Replaced in the ED, increased to 5.3, but now is normalized at 3.7 upon repeat lab today. Lasix discontinued. Hypomagnesemia: Secondary to diuretic use. Mg 0.9, s/p replacement in ED. Improved to 1.6, give additional IV magnesium 2 g. DM: Sliding scale w/ Accu-Cheks, hold Metformin secondary to decreased PO intake. DVT Prophylaxis: SCD/teds. Written by Julius Fajardo, acting as scribe for Dr. Holland on 09/24/16 at 12:38. The documentation accurately reflects the work performed [id number] by me on at 12:38. Discharge Planning Hopefully discharge planning later today versus tomorrow a.m. pending results of echocardiogram and PT input. Julius Fajardo Sep 24, 2016 12:38 pm Michael Holland DO Sep 24, 2016 5:58 pm
--- NOTE | 2016-09-24 12:55 | RADRPT ---
EXAM DATE/TIME: 09/24/2016 12:04 [facility] COMPARISON: No previous studies available for comparison. INDICATIONS : Syncope. MEDICAL HISTORY : Hypertension. Deep venous thrombosis. Anticoagualnt therapy. Arthritis. Diabetes. SURGICAL HISTORY : Cholecystectomy. Lap band. ENCOUNTER: Initial ACUITY: 1 day PAIN SCORE: 0/10 LOCATION: Bilateral neck PEAK SYSTOLIC VELOCITIES (cm/sec): ICA/CCA RATIO: Right: 0.8 Left: 0.9 ICA: Right: 100 Left: 85 CCA: Right: 128 Left: 96 ECA: Right: 67 Left: 72 VERTEBRAL: Right: 56 antegrade Left: 39 antegrade Elevated flow velocities and ICA/CCA ratios have been found to correlate with increased degrees of vessel stenosis, calculated as percentage of diameter relative to a normal segment of distal ICA/CCA FINDINGS: RIGHT CAROTID: Minimal plaque. No significant stenosis is visualized. The waveforms are within normal limits. LEFT CAROTID: Minimal plaque. No significant stenosis is visualized. The waveforms are within normal limits. VERTEBRAL ARTERIES: Antegrade flow is seen in both vertebral arteries. MISCELLANEOUS: None. CONCLUSION: 1. Patent carotid arteries bilaterally. 2. Antegrade flow involving both vertebral arteries. Alex Smith Jr., MD on September 24, 2016 at 12:51 Board Certified Radiologist. This report was verified electronically.
[2016-09-24 17:14] VITALS: BP 140/80; PULSE 89; RESP 12; TEMP 98.1; O2SAT 94
--- NOTE | 2016-09-24 19:00 | EC ---
Study Study Date:09/24/2016 STUDY CONCLUSIONS SUMMARY - Left ventricle: The cavity size was normal. Wall thickness was normal. Systolic function was normal. The estimated ejection fraction was in the range of 60% to 65%. Wall motion was normal; there were no regional wall motion abnormalities. - Aortic valve: Valve area: 2.22cm^2 (Vmax). If LV function is below 40, please consider prescribing an ACEI or ARB or document rationale for non-use. PROCEDURE DATA STUDY STATUS: Elective. Procedure: Transthoracic echocardiography. Image quality was good. Scanning was performed from the parasternal, apical, and subcostal acoustic windows. Study completion: The patient tolerated the procedure well. Transthoracic echocardiography. M-mode, complete 2D, complete spectral Doppler, and color Doppler. Height: Height: 64in. Weight: Weight: 208.6lb. Body mass index: BMI: 35.9kg/m^2. Body surface area: BSA: 1.99m^2. Patient status: Inpatient. CARDIAC ANATOMY LEFT VENTRICLE: The cavity size was normal. Wall thickness was normal. Systolic function was normal. The estimated ejection fraction was in the range of 60% to 65%. Wall motion was normal; there were no regional wall motion abnormalities. AORTIC VALVE: Trileaflet; normal thickness leaflets. Doppler: Transvalvular velocity was within the normal range. There was no stenosis. No regurgitation. Valve area: 2.22cm^2 (Vmax). Indexed valve area: 1.12cm^2/m^2 (Vmax). AORTA: Aortic root: The aortic root was normal in size. MITRAL VALVE: Structurally normal valve. Doppler: Transvalvular velocity was within the normal range. There was no evidence for stenosis. No regurgitation. LEFT ATRIUM: The atrium was normal in size. RIGHT VENTRICLE: The cavity size was normal. Wall thickness was normal. PULMONIC VALVE: Doppler: Transvalvular velocity was within the normal range. There was no evidence for stenosis. No regurgitation. TRICUSPID VALVE: Structurally normal valve. Doppler: Transvalvular velocity was within the normal range. No regurgitation. PULMONARY ARTERY: The main pulmonary artery was normal-sized. Systolic pressure was within the normal range. RIGHT ATRIUM: The atrium was normal in size. PERICARDIUM: There was no pericardial effusion. SYSTEMIC VEINS: Inferior vena cava: The vessel was normal in size. Patient weight: 208.6lb _Ejection fraction:_ 65-75% _Fractional shortening:_ 32% up to 5Kg 5-11.5Kg 11.6-22.9Kg 23-45Kg 45-57Kg Aortic Root 7-13 <17 13-22 17-27 17-27 LA diam 6-13 <23 24-38 33-47 37-40 RVID 10-17 7-15 7-15 7-18 8-17 LVIDd 12-22 <32 24-38 33-47 37-40 LVPW 2-4 3-6 5-7 6-8 7-8 IVS 2-4 3-6 5-7 6-8 7-8 BASIC MEASUREMENTS ADULT NORMAL Left ventricle LV internal dimension, ED, chordal *41.8 mm 43-52 level, PLAX LV internal dimension, ES, chordal 30.5 mm 23-38 level, PLAX Fractional shortening, chordal level, *27 % >29 PLAX LV posterior wall thickness, ED 8.72 mm IVS/LVPW ratio, ED 1.01 <1.3 Ventricular septum Septal thickness, ED 8.77 mm Aortic valve Leaflet separation 23 mm 15-26 BASIC MEASUREMENTS ADULT NORMAL Aortic valve Leaflet separation 23 mm 15-26 Aorta Root diameter, ED 26 mm 20-37 Left atrium Anterior-posterior dimension, ES 40 mm 19-40 Anterior-posterior dimension index, ES 2.01 cm/m^2 <2.2 LA/aortic root ratio 1.54 DOPPLER MEASUREMENTS ADULT NORMAL Aortic valve Peak velocity, S 157 cm/s Valve area, Vmax 2.22 cm^2 Valve area index, Vmax 1.12 cm^2/m^2 Mitral valve Peak E-wave velocity 49.4 cm/s Peak A-wave velocity 80.9 cm/s Deceleration time *232 ms 150-230 Peak E/A ratio 0.6 Pulmonic valve Peak velocity, S 90.9 cm/s LEGEND: Mean values are shown as u=mean value. Asterisk (*) colon values outside specified normal range. Prepared and signed by Tuan Manzano [id number]
[2016-09-24 19:56] VITALS: BP 122/73; PULSE 75; RESP 21; TEMP 98.7; O2SAT 98
[2016-09-25] VITALS: BP 141/65; PULSE 78; RESP 21; TEMP 98.7; O2SAT 98
[2016-09-25 00:49] VITALS: PULSE 89
[2016-09-25] MEDS: ONDANSETRON HCL 4 MG/2 ML VIAL IVP PRN ×2 (05:13→10:52)
[2016-09-25] MEDS: INSULIN ASPART SUPPLEMENTAL SCALE SQ SCH ×2 (05:45→11:00)
[2016-09-25 07:09] LABS: AUTOMATED NEUTROPHIL # 7.4 TH/MM3 (1.8-7.7); BASOPHIL % 0.4 % (0.0-2.0); EOSINOPHIL # 0.2 TH/MM3 (0-0.4); EOSINOPHIL % 2.3 % (0.0-4.0); HEMATOCRIT 35.1 % (35.0-46.0); HEMO FLAGS DIFF FINAL; LYMPH % 14.6 % (9.0-44.0); LYMPHOCYTE # 1.4 TH/MM3 (1.0-4.8); MEAN CELL VOLUME 83.9 FL (80.0-100.0); MEAN CORPUSCULAR HEMOGLOBIN 27.1 PG (27.0-34.0); MEAN CORPUSCULAR HGB CONC 32.3 % (32.0-36.0); MONO % 7.2 % (0.0-8.0); NEUT % 75.5 % (16.0-70.0); PLATELET COUNT 255 TH/MM3 (150-450); RED BLOOD COUNT 4.18 MIL/MM3 (4.00-5.30); RED CELL DISTRIBUTION WIDTH 18.3 % (11.6-17.2); WHITE BLOOD COUNT 9.8 TH/MM3 (4.0-11.0)
[2016-09-25 08:18] LABS: BICARBONATE 30.4 MEQ/L (21.0-32.0); MAGNESIUM 1.6 MG/DL (1.5-2.5); POTASSIUM 3.4 MEQ/L (3.5-5.1)
[2016-09-25] MEDS ORDERED: POTASSIUM CHLORIDE 20 MEQ CONTROLLED RELEASE TAB PO ONE (08:30)
[2016-09-25 08:33] VITALS: BP 140/84; PULSE 80; RESP 16; TEMP 97.6; O2SAT 95
[2016-09-25] MEDS: MAGNESIUM SULFATE 1 GM PREMIX 100 ML IV SCH ×2 (09:01→10:52)
[2016-09-25] MEDS: SODIUM CHLORIDE 0.9% FLUSH 5 ML FLUSH FLUSH SCH (09:01)
[2016-09-25] MEDS: RIVAROXABAN 20 MG TAB PO SCH (09:02)
[2016-09-25] MEDS: SERTRALINE HCL 50 MG TAB PO SCH (09:02)
[2016-09-25] MEDS: ACETAMINOPHEN/HYDROcodone 325 MG/10 MG TAB PO PRN (09:03)
[2016-09-25] MEDS ORDERED: ONDA4TAB7 SL (11:15)
--- NOTE | 2016-09-25 11:20 | HHI.PR ---
Subjective Remarks Follow-up for dizziness. The patient states that she is feeling dizzy whenever she tried to stand and walk yesterday, this has improved. She's been able to get up and ambulate some. She has been having some nausea still, which is causing decreased oral intake. However she denies any vomiting or diarrhea. Zofran does help the nausea. She does have a walker and her son lives at home. She declines any home health care because she is going back to [place] in a few days. She feels feels much improved and she wants to go home. Objective Vitals Vital Signs Date Time Temp Pulse Resp B/P Pulse Ox O2 Delivery O2 Flow Rate FiO2 09/25/16 10:53 20 09/25/16 08:33 97.6 80 16 140/84 95 09/25/16 00:49 89 09/25/16 00:00 98.7 78 21 141/65 98 09/24/16 19:56 98.7 75 21 122/73 98 09/24/16 17:14 98.1 89 12 140/80 94 Room Air 09/24/16 11:39 97.4 101 19 147/86 93 Room Air I/O 09/24/16 09/24/16 09/24/16 09/25/16 09/25/16 09/25/16 07:00 15:00 23:00 07:00 15:00 23:00 Intake Total 960 ml Balance 960 ml Intake Oral 960 ml # Voids 2 0 # Bowel Movements 0 Result Diagram: 09/25/16 0655 09/25/16 0655 Imaging Last Impressions Carotid Artery Ultrasound 09/24/16 0000 Signed Impressions: Service Date/Time: September 12:04 - CONCLUSION: 1. Patent carotid arteries bilaterally. 2. Antegrade flow involving both vertebral arteries. Alex Smith Jr., MD Head CT 09/23/161650 Signed Impressions: Service Date/Time: Friday, September 23, 2016 17:56 - CONCLUSION: No acute intracranial abnormality. There is maxillary sinus disease. Maurisio Dozier MD Cervical Spine CT 09/23/161650 Signed Impressions: Service Date/Time: Friday, September 23, 2016 17:56 - CONCLUSION: 1. Degenerative chronic bony change as described above. 2. Mild central disc protrusion at the C4-C5 level and at the central to left side at the C6-C7 level. 3. Disc space narrowing and bulging and osteophyte formation at the C5-C6 and C6-C7 levels. 4. 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 Maurisio Dozier MD Lumbar Spine X-Ray 09/23/16 0000 Signed Impressions: Service Date/Time: Friday, September 23, 2016 18:17 - CONCLUSION: 1. Grade I to II anterior spondylolisthesis of L5 on S1. 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 There is very prominent disc space narrowing at this level. 2. Prominent disc space narrowing and chronic endplate changes at the T12-L1 level. Maurisio Dozier MD Hip and Pelvis X-Ray 09/23/16 0000 Signed Impressions: Service Date/Time: Friday, September 23, 2016 18:14 - CONCLUSION: 1. No acute injury is seen. 2. Chronic calcification superior to the greater trochanter likely related to hypertrophic change. Maurisio Dozier MD Chest X-Ray 09/23/16 0000 Signed Impressions: Service Date/Time: Friday, September 23, 2016 18:24 - CONCLUSION: No acute disease. Maurisio Dozier MD Objective Remarks GENERAL: Well-developed well-nourished. In no acute distress. SKIN: Warm and dry. No lesions noted. HEENT: Normocephalic. Pupils equal and round. Mucous membranes pink and moist. CARDIOVASCULAR: Regular rate and rhythm. No murmur appreciated. RESPIRATORY: No accessory muscle use. Clear to auscultation. Breath sounds equal bilaterally. GASTROINTESTINAL: Abdomen soft, non-tender, nondistended. Bowel sounds x4. MUSCULOSKELETAL: No obvious deformities. No clubbing or cyanosis. No edema. NEUROLOGICAL: Awake and alert. No focal neurological deficits. Moves upper and lower extremities spontaneously. Normal speech. PSYCHIATRIC: Appropriate mood and affect; insight and judgment normal. A/P Problem List: (1) Syncope ICD Code: R55 Status: Acute (2) Dehydration ICD Code: E86.0 Status: Acute (3) Hypokalemia ICD Code: E87.6 Status: Acute (4) Hypomagnesemia ICD Code: E83.42 Status: Acute (5) DM (diabetes mellitus) ICD Code: E11.9 Status: Acute Assessment and Plan 66-year-old female with a PMH of HTN, DVT on Xarelto, DM and Hyperlipidemia who was brought to the ER by EMS after syncopal episode Syncope: s/p syncopal episodes prior to admission. +head trauma, no convulsions witnessed, denies prodromal symptoms. Suspect secondary to dehydration from decrease oral intake and recent Lasix use as well as electrolyte abnormalities as below. CT Head/CT C-Spine w/ no acute findings. Hip/Pelvis X-ray negative for fracture, CXR w/ no acute findings. Serial troponins within normal limits. S/P IVF for hydration. Replenish electrolytes as below. Checked carotid ultrasound, no significant stenosis. Monitor on telemetry. Echocardiogram showed normal systolic function and EF 60%. PT eval , recommends [facility], patient declines. Hypokalemia: From Lasix use. Replaced in the ED, increased to 5.3, but then normalized to 3.7 upon repeat lab. Lasix discontinued. Potassium 3.4 today, given additional oral replacement. Hypomagnesemia: Secondary to diuretic use. Mg 0.9, s/p replacement in ED. Improved to 1.6, given additional IV magnesium 2 g. magnesium remains 1.6 today , give additional 3 g magnesium. DM: Sliding scale w/ Accu-Cheks, hold Metformin secondary to decreased PO intake. DVT Prophylaxis: SCD/teds. Written by Julius Fajardo, acting as scribe for Dr. Holland on 09/25/16 at 11:19. The documentation accurately reflects the work performed [id number] by me on at 11:19 Discharge Planning Discharge patient to home Condition on discharge: Improved Diabetic Diet as tolerated Regular activity Rx written: Michell Follow-up with primary care physician Julius Fajardo Sep 25, 2016 11:20 am Michael Holland DO Sep 25, 2016 3:35 pm
[2016-09-25] MEDS ORDERED: MAGNESIUM SULFATE 1 GM PREMIX 100 ML IV ONE (11:30)
[2016-09-25 11:55] VITALS: BP 121/73; PULSE 84; RESP 20; TEMP 97.4; O2SAT 96
== END 2016-09-25 15:52 | disposition home or self-care (01) ==
LOC: NEPC 16:38 → NEDA 20:44 → NEDH 09-24 00:44 → NEPHCDU 09-24 18:57
PROVIDERS: ADMIT Hospitalist; ATTEND Hospitalist
DX: R55 Syncope and collapse (principal); S09.90XA Unspecified injury of head, initial encounter; E11.9 Type 2 diabetes mellitus without complications; E87.6 Hypokalemia; E83.42 Hypomagnesemia; E86.0 Dehydration; E78.5 Hyperlipidemia, unspecified; I10 Essential (primary) hypertension; W18.30XA Fall on same level, unspecified, initial encounter; Z79.01 Long term (current) use of anticoagulants; Z86.718 Personal history of other venous thrombosis and embolism
CPT/HCPCS: 70450; 71020; 72100; 72125; 73502; 80048; 80053; 81001; 82550; 82948; 83605; 83735; 84132; 84443; 84484; 85025; 85610; 85730; 93005; 93306; 93880; 96361; 96365; 96375; 97110; 97116; 97162; 99285; G0378; G8987; G8988; J1170; J1815; J1885; J2405; J3475; J7030